=== PATIENT | female | born 1985 | race Caucasian/White ===

== ENCOUNTER 2018-09-12 21:12 | Inpatient (IN) | payer BC, OTHER ==
[~2018-09-12] VITALS: Ht 167.6 cm; Wt 64.9 kg
[2018-09-12 21:23] VITALS: Ht 167.6 cm; Wt 64.9 kg
--- NOTE | 2018-09-12 21:25 | NUR ---
PATIENT AAOX4 PRESENTS TO THE ED WITH C/O ABD PAIN AND BLEEDING. PATIENT STATES SHE IS ABOUT 3 MONTHS HER LAST MENSES WAS IN MAY. 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 PATIENT WAS BROUGHT BACK TO ROOM AND TAKEN TO BATHROOM FOR A URINE SAMPLE. A FEW MINUTES LATER, PTS SIGNIFICANT OTHER SUMMONED ME TO COME TO THE BATHROOM. WHEN I ARRIVED TO THE BATHROOM, PT STATED "I THINK I PEE'D SOMETHING MORE THAN URINE". WHEN I LIFTED PATIENT UP, I COULD SEE A SMALL FETUS IN THE TOILET. FETUS WAS NOT VIABLE. I CLEANED PATIENT UP, PROVIDED BRIEFS AND DRY PANTS BEFORE RETRIEVING FETUS FROM TOILET. PATIENT BACK IN ROOM, BREATHING EVEN AND UNLABORED, PATIENT IMMEDIATELY STATES THAT THE PAIN SHE WAS FEELING SUBSIDED. PATIENT PLACED ON GURNEY- AND ON ALL MONITORS FOR FURTHER OBSERVATION.
[2018-09-12 22:42] LABS: PLATELET COUNT 357 x10^3mcL (130-400); RED CELL DISTRIBUTION WIDTH 13.9 % (11.5-14.5)
[2018-09-12 22:49] LABS: CALCIUM 8.9 mg/dL (8.5-10.1); CARBON DIOXIDE 17.1 mmol/L (21-32); CHLORIDE SERUM 104 mmol/L (98-107); CREATININE SERUM 0.7 mg/dL (0.6-1.0); GFR1 > 60 mL/min; GLUCOSE SERUM 88 mg/dL (74-106); POTASSIUM SERUM 3.2 mmol/L (3.5-5.1); SODIUM SERUM 138 mmol/L (136-145)
--- NOTE | 2018-09-12 22:50 | NUR ---
PATIENT TAKEN FOR U/S OF ABD. WILL MONITOR UPON RETURN.
[2018-09-12 22:56] LABS: MONOCYTE 1 % (0-7); SEGMENTED NEUTROPHILS 83 % (37-75)
[2018-09-12 22:57] LABS: PLATELET MORPHOLOGY PLATELETS NORMAL; rbc morphology (normal/abnorm) NORMAL (NORMAL)
--- NOTE | 2018-09-12 23:10 | NUR ---
STARTED IV ANTIBIOTICS PER MD ORDERS.
[2018-09-13] VITALS (7 sets, daily range): BP systolic 88–94; BP diastolic 54–62
--- NOTE | 2018-09-13 00:11 | NUR ---
PATIENT RESTING ON GURNEY- NO SS OF DISTRESS NOTED. WILL CONTINUE TO MONITOR.
[2018-09-13 01:51] LABS: PLATELET COUNT 302 x10^3mcL (130-400); RED CELL DISTRIBUTION WIDTH 13.7 % (11.5-14.5)
[2018-09-13 02:08] LABS: MONOCYTE 1 % (0-7); SEGMENTED NEUTROPHILS 80 % (37-75)
[2018-09-13 02:09] LABS: BAND NEUTROPHIL 5 % (0-10); rbc morphology (normal/abnorm) NORMAL (NORMAL)
--- NOTE | 2018-09-13 03:32 | NUR ---
RECEIVED PT FROM ED RENAE ACCOMPANIED BY RN. GISELA. DENIES HEADACHE/DIZZINESS. TELE #31 SHOWING SINUS BRADYCARDIA, DENIES CP, DENIES PALPITATIONS. PER PT, MODERATE AMOUNT OF VAGINAL BLEEDING SINCE PASSING FETUS DOWN IN ED. PT DENIES ABD PAIN, STATES "IT STOPPED AFTER THE FETUS CAME OUT". DENIES N/V. FLAT AFFECT. ANSWERS ARE SHORT. PT ARRIVED ON UNIT WITH 700CC OF SECOND BOLUS RUNNING, WILL RECHECK BP ONCE COMPLETE. ORIENTED TO SURROUNDINGS. IV CDI, IVF INFUSING WELL. CALL LIGHT WITHIN REACH. BOYFRIEND AT BEDSIDE ASKING WHEN PT CAN BE DISCHARGED, TOLD PT THAT DR. VASQUEZ WILL BE IN SHORTLY TO DISCUSS POC.
[2018-09-13 04:16] LABS: MAGNESIUM 1.6 mg/dL (1.8-2.4)
[2018-09-13 04:19] LABS: CHOLESTEROL/HDL RATIO 2.9
--- NOTE | 2018-09-13 04:46 | NUR ---
SECOND BOLUS COMPLETED, BP: 89/54 MAP (66), HR 59. PT C/O "MOLAR TOOTH" PAIN. WILL MEDICATE PER EMAR.
--- NOTE | 2018-09-13 06:08 | NUR ---
PT SITTING UP IN BED TALKING TO BOYFRIEND AT BEDSIDE. DENIES PAIN AFTER MEDICATION ADMINISTRATION. NO S/S ACUTE DISTRESS. NO CHANGES OVERNIGHT. ALL NEEDS MET AND ATTENDED TO. IV SITE CDI, IVF INFUSING WELL. CALL LIGHT WITHIN REACH. WILL ENDORSE CARE TO ONCOMING SHIFT.
[2018-09-13 06:55] LABS: BASOPHIL % 0.4 % (0-2); PLATELET COUNT 268 x10^3mcL (130-400); RED CELL DISTRIBUTION WIDTH 14.1 % (11.5-14.5)
[2018-09-13 06:58] LABS: ALKALINE PHOSPHATASE 31 U/L (46-116); ALT/SGPT 11 U/L (14-59); AST/SGOT 11 U/L (15-37); BILIRUBIN TOTAL 0.22 mg/dL (0.20-1.00); CALCIUM 7.9 mg/dL (8.5-10.1); CARBON DIOXIDE 17.2 mmol/L (21-32); CHLORIDE SERUM 111 mmol/L (98-107); CREATININE SERUM 0.6 mg/dL (0.6-1.0); GFR1 > 60 mL/min; GLUCOSE SERUM 80 mg/dL (74-106); SODIUM SERUM 142 mmol/L (136-145)
[2018-09-13 07:02] LABS: ALBUMIN 2.3 g/dL (3.4-5.0); TOTAL PROTEIN, SERUM 5.2 g/dL (6.4-8.2)
--- NOTE | 2018-09-13 07:05 | NUR ---
RECEIVED PT FROM [facility] CYN BOLTON. PT FOUND RESTING IN BED WITH BOTH EYES CLOSED. NO S/S OF ACUTE DISTRESS. NO S/S OF PAIN, DENIES PAIN. NO SOB ON ROOM AIR. CALM/COOPERATIVE. IV WNL TO LAC, IV FLUIDS FLOWING. PATENT AND FLUSHES WELL. NO REDNESS, NO SWELLING, NO INFILTRATION. NO N/V. EASILY AROUSABLE TO VERBAL STIMULI. SPEECH CLEAR. ABD SOFT, FLAT, NON-DISTENDED. BOWEL SOUNDS ACTIVE X4. LUNG SOUNDS CTA BILATERALLY ON ROOM AIR. PT EDUCATED TO URINE IN HAT IN TOILET FOR URINE CATCH FOR UA, VERBALIZED UNDERSTANDING. INSTRUCTED TO USE CALL LIGHT TO CALL FOR ASSISTANCE PRN. VERBALIZED UNDERSTANDING. DENIES DIZZINESS. SIDE RAILS UP X2. BED IN LOW POSITION. CALL LIGHT WITHIN REACH. WILL CONTINUE TO MONITOR.
--- NOTE | 2018-09-13 12:30 | NUR ---
PT LAYING IN BED. AMBULATORY TO RESTROOM. HEMATURIA NOTED. UA SAMPLE SENT TO LAB. DENIES PAIN. NO SOB ON ROOM AIR. NO CHEST PAIN. NO ABD. PAIN. NO N/V. CALM/COOPERATIVE. NO FARFAN. NO DIZZINESS. IV WNL, IV FLUIDS FLOWING. BED IN LOW POSITION. CALL LIGHT WITHIN REACH. WILL CONTINUE TO MONITOR.
[2018-09-13 13:35] LABS: microscopic required? YES
[2018-09-13 13:38] LABS: urine erythrocyte 3+ (NEGATIVE)
--- NOTE | 2018-09-13 15:01 | NUR ---
PT GIVEN RHOGAM PER PHYSICIAN ORDER. VERIFIED WITH CYN FUNEZ AT BEDSIDE. PT CONSENT IN CHART. PT AA/OX4. NO S/S OF ACUTE DISTRESS. NO SOB ON ROOM AIR. NO FEVER, NO CHILLS. VS STABLE. CALM/COOPERATIVE. WILL CONTINUE TO MONITOR.
--- NOTE | 2018-09-13 18:53 | NUR ---
PT RESTING IN BED WITH BOTH EYES CLOSED. NO S/S OF PAIN. NO SOB ON ROOM AIR. PT CALM/COOPERATIVE. PT REPORTS MODERATE VAGINAL BLEEDING, USED 2 PADS DURING DAY SHIFT. NO ABD. PAIN. NO N/V. NO FEVER. NO FARFAN. NO DIZZINESS. BED IN LOW POSITION. CALL LIGHT WITHIN REACH. WILL ENDORSE TO ONCOMING SHIFT.
--- NOTE | 2018-09-13 19:35 | NUR ---
RECEIVED PT FROM PREVIOUS SHIFT. DROWSY BUT AROUSABLE. AAO. TELE #16 SHOWING NSR. DENIES PAIN. DENIES N/V. NO S/S ACUTE DISTRESS. BREATHING E/U ON RA. IV SITE CDI, NO ERYTHEMA OR EDEMA, IVF INFUSING WELL. PT STILL REPORTS MODERATE AMOUNT OF SANGUINEOUS DRAINAGE, REMINDED PT TO KEEP TRACK OF NUMBER OF PADS USED PER SHIFT. PT VERBALIZED UNDERSTANDING. CALL LIGHT WITHIN REACH. SAFETY MEASURES IN PLACE. WILL CONTINUE TO MONITOR.
--- NOTE | 2018-09-14 01:20 | NUR ---
PT RESTING IN BED. NO S/S ACUTE DISTRESS. BREATHING E/U ON RA. NO SIGNS OF PAIN NOTED. CALL LIGHT WITHIN REACH. WILL CONTINUE TO MONITOR.
--- NOTE | 2018-09-14 06:00 | NUR ---
PT HAD RESTFUL NIGHT. DENIES PAIN. NO S/S ACUTE DISTRESS. PT REPORTS USING 2 PADS DURING SHIFT, "LIKE A REGULAR PERIOD", PT DENIES PASSING MULTIPLE CLOTS HOWEVER SAYS WHEN THEY DO PASS, THEY'RE "ABOUT NICKEL SIZE". NO CHANGES OVERNIGHT. ALL NEEDS MET AND ATTENDED TO. IV SITE CDI, PATENT AND INTACT. CALL LIGHT WITHIN REACH. WILL ENDORSE CARE TO ONCOMING SHIFT.
[2018-09-14 06:10] VITALS: BP 92/45
[2018-09-14 06:58] LABS: CALCIUM 8.4 mg/dL (8.5-10.1); CARBON DIOXIDE 17.1 mmol/L (21-32); CHLORIDE SERUM 115 mmol/L (98-107); CREATININE SERUM 0.5 mg/dL (0.6-1.0); GFR1 > 60 mL/min; GLUCOSE SERUM 103 mg/dL (74-106); MAGNESIUM 1.6 mg/dL (1.8-2.4); PHOSPHOROUS 3.2 mg/dL (2.5-4.9); POTASSIUM SERUM 3.8 mmol/L (3.5-5.1); SODIUM SERUM 146 mmol/L (136-145)
--- NOTE | 2018-09-14 07:05 | NUR ---
RECEIVED BEDSIDE REPORT FROM NUTRITION COUNSELOR NURSE AT THIS TIME. PATIENT RESTING COMFORTABLY IN BED. NO APPARENT DISTRESS OR DISCOMFORT NOTED. BREATHING EVEN AND UNLABORED. DENIES SHORTNESS OF BREATH AT THIS TIME. PATIENT DENIES CHEST PAIN AT THIS TIME. IV PARENT AND INTACT. ALL QUESTIONS AND CONCERNS ADDRESSED. ALL NEEDS ATTENDED TO. PATIENT HAS A FLAT AFFECT AND SPEAKS IN SHORT SENTENCES WHEN ASKED QUESTIONS. WILL CONTINUE TO MONITOR
--- NOTE | 2018-09-14 07:07 | NUR ---
BEDSIDE REPORT GIVEN TO CYN WALLIS. ALL QUESTIONS AND CONCERNS ADDRESSED.
[2018-09-14 08:06] LABS: BASOPHIL % 0.5 % (0-2); PLATELET COUNT 256 x10^3mcL (130-400); RED CELL DISTRIBUTION WIDTH 14.1 % (11.5-14.5)
[2018-09-14 08:14] VITALS: BP 93/56
--- NOTE | 2018-09-14 10:17 | NUR ---
ALL MORNING MEDICATIONS ADMINISTERED. PATIENT TOLERATED MEDICATION WELL. NO ADVERSE EFFECTS NOTED. ALL NEEDS ATTENDED TO. WILL CONTINUE TO MONITOR
--- NOTE | 2018-09-14 10:22 | NUR ---
REPORTED TO DR JONES PATIENT MAG 1.6. WILL PROCEED ORDERED. WILL CONTINUE TO MONITOR
[2018-09-14] MEDS ORDERED: LEVOFLOXACIN500 M1 PO (13:11)
[2018-09-14] MEDS ORDERED: FLA500 PO (13:11)
--- NOTE | 2018-09-14 13:15 | NUR ---
PATIENT SITTING UP IN BED EATING LUNCH AT THIS TIME. PATIENT TOLERATING DIET WELL. NO APPARENT DISTRESS OR DISCOMFORT NOTED. ALL NEEDS ATTENDED TO. WILL CONTINUE TO MONITOR
[2018-09-14 13:16] VITALS: BP 92/59
[2018-09-14 17:20] VITALS: BP 96/59
--- NOTE | 2018-09-14 17:43 | NUR ---
PATIENT STABLE TO BE DISCHARGED TO HOME. DISCHARGE INSTRUCTIONS GIVEN WELL EDUCATION. INSTRUCTED PATIENT ABOUT FOLLOW UP APPOINTMENT. PATIENT VERBALIZES UNDERSTANDING. IV REMOVED WITH CATH INTACT. ID BANDS REMOVED. TELE MONITOR REMOVED AND RETURNED TO POLICE CHIEF. ALL BELONGINGS WITH PATIENT. ALL QUESTIONS AND CONCERNS ADDRESSED. ALL NEEDS ATTENDED TO. WILL BE ESCORTED DOWN TO THE LOBBY
== END 2018-09-14 18:06 | disposition home or self-care (01) | DRG 779 ==
LOC: ED 21:12 → DU 09-13 02:49
PROVIDERS: Emergency Medicine; ADMIT Internal Medicine
PROC: 30233S1 Transfusion of Nonautologous Globulin into Peripheral Vein, Percutaneous Approach (ICD-10-PCS; principal; 2018-09-13)
DX: O03.87 Sepsis following complete or unspecified spontaneous abortion (principal); A41.9 Sepsis, unspecified organism; E43 Unspecified severe protein-calorie malnutrition; E78.5 Hyperlipidemia, unspecified; D64.9 Anemia, unspecified; E87.6 Hypokalemia; E83.42 Hypomagnesemia; F17.210 Nicotine dependence, cigarettes, uncomplicated; Z68.22 Body mass index [BMI] 22.0-22.9, adult
CPT/HCPCS: G0378; J0696; J1460; J3480; J3490; J7030